=== PATIENT | male | born 1955 | race Caucasian/White ===

== ENCOUNTER → 2023-12-21 10:12 | Outpatient (REF) | payer BC, SELFPAY | LOC: RAD 10:12 | PROVIDERS: ATTENDING PHYSICIAN Internal Medicine Geriatric Medicine | DX: Z13.820 Encounter for screening for osteoporosis (principal) | CPT/HCPCS: 77080 ==

== ENCOUNTER → 2024-09-04 08:02 | Outpatient (REF) | payer MEDICARE, BC, SELFPAY ==
[2024-09-04 09:04] LABS: % Eosinophils 5.1 % (0-6); % Lymphocytes 26.7 % (20.5-51.1); % Monocytes 8.2 % (1.7-9.3); Absolute Basophils 0.1 10^3/uL (0-0.2); Absolute Eosinophils 0.2 10^3/uL (0-0.7); Absolute Lymphocytes 0.9 10^3/uL (1.2-3.4); Absolute Monocytes 0.3 10^3/uL (0.1-0.6); Hematocrit 45.4 % (39.0-52.0); Hemoglobin 15.2 g/dL (13.0-18.0); Mean Corp Hgb Conc. 33.5 g/dL (33.0-37.0); Mean Corpuscular Hgb 29.6 pg (27.0-31.0); Mean Corpuscular Volume 88.3 fL (80.0-94.0); Mean Platelet Volume 10.3 fL (7.4-10.4); Nucleated Red Blood Cells % 0 % (-); Platelet Count 179 10^3/uL (130-400); Red Blood Cell Count 5.14 10^6/uL (4.70-6.10); Red Cell Dist. Width 12.9 % (11.5-14.5); White Blood Cell Count 3.5 10^3/uL (4.8-10.8)
[2024-09-04 09:45] LABS: Urine Albumin Negative (Neg - Trace); Urine Bilirubin Negative (Negative); Urine Character Clear (Clear); Urine Color Yellow; Urine Glucose Negative (Negative); Urine Ketone Negative (Negative); Urine Leukocyte Negative (Negative); Urine Nitrite Negative (Negative); Urine Occult Blood Negative (Negative); Urine Specific Gravity 1.015 (<1.030); Urine Urobilinogen Negative (Neg - 1+)
[2024-09-04 09:56] LABS: ALT (SGPT) 57 U/L (0-50); AST (SGOT) 78 U/L (17-59); Albumin 5.2 g/dl (3.5-5.0); Alkaline Phosphatase 45 U/L (38-126); Blood Urea Nitrogen 19 mg/dl (9-20); Calcium 9.4 mg/dl (8.4-10.2); Carbon Dioxide 26 mmol/L (22-30); Chloride 100 mmol/L (98-107); Glucose 71 mg/dl (70-99); HDL Cholesterol 98 mg/dl; LDL Cholesterol, Calculated 28 mg/dl; Potassium 4.4 mmol/L (3.5-5.1); Sodium 137 mmol/L (135-145); Total Cholesterol 135 mg/dl (50-199); Total Protein 7.5 g/dl (6.3-8.2); Triglyceride 47 mg/dl (10-149); Very Low Density Lipoprotein 9 mg/dl (0-30); eGFR > 60.00
[2024-09-04 10:01] LABS: Vitamin D, 25-OH*** 49.4 ng/mL (30-80)
[2024-09-04 10:15] LABS: PSA, Total - Screen 0.56 ng/ml (0.0-4.0); TSH 1.29 uIU/ml (0.47-4.68)
== END ==
LOC: REG 08:02
PROVIDERS: ATTENDING PHYSICIAN Internal Medicine Geriatric Medicine
DX: E78.2 Mixed hyperlipidemia (principal); Z00.01 Encounter for general adult medical examination with abnormal findings; E78.5 Hyperlipidemia, unspecified; N40.1 Benign prostatic hyperplasia with lower urinary tract symptoms; Z68.31 Body mass index [BMI] 31.0-31.9, adult; Z12.5 Encounter for screening for malignant neoplasm of prostate; R73.03 Prediabetes; Z79.899 Other long term (current) drug therapy; R73.09 Other abnormal glucose; E03.9 Hypothyroidism, unspecified
CPT/HCPCS: 36415; 80053; 80061; 81003; 82306; 84443; 85025; G0103

== ENCOUNTER → 2025-05-27 11:38 | Outpatient (REF) | payer MEDICARE, OTHER, SELFPAY ==
[2025-05-27 13:15] LABS: Hematocrit 42.9 % (39.0-52.0); Hemoglobin 14.5 g/dL (13.0-18.0); Mean Corp Hgb Conc. 33.8 g/dL (33.0-37.0); Mean Corpuscular Volume 85.5 fL (80.0-94.0); Nucleated Red Blood Cells % 0 % (-); Platelet Count 167 10^3/uL (130-400); Red Cell Dist. Width 13.2 % (11.5-14.5)
[2025-05-27 13:32] LABS: Urine Character Clear (Clear)
[2025-05-27 14:13] LABS: ALT (SGPT) 86 U/L (0-50); AST (SGOT) 72 U/L (17-59); Albumin 4.7 g/dl (3.5-5.0); Alkaline Phosphatase 44 U/L (38-126); Blood Urea Nitrogen 15 mg/dl (9-20); Calcium 9.5 mg/dl (8.4-10.2); Carbon Dioxide 23 mmol/L (22-30); Chloride 105 mmol/L (98-107); Glucose 106 mg/dl (70-99); Potassium 4.3 mmol/L (3.5-5.1); Sodium 137 mmol/L (135-145); Total Protein 6.8 g/dl (6.3-8.2); eGFR > 60.00
[2025-05-29 15:22] LABS: Lyme Antibody Screen, EIA Negative (Negative)
== END ==
LOC: REG 11:38
PROVIDERS: ATTENDING PHYSICIAN Nurse Practitioner Family; FAMILY PHYSICIAN Internal Medicine Geriatric Medicine
DX: R50.9 Fever, unspecified (principal); R52 Pain, unspecified
CPT/HCPCS: 36415; 80053; 81003; 84443; 85025; 86618